=== PATIENT | male | born 1985 | race Caucasian/White ===

== ENCOUNTER → 2018-03-17 09:10 | Emergency (ER) | payer SELFPAY | END | disposition home or self-care (01) | LOC: OHCORT 09:10 | DX: Z02.5 Encounter for examination for participation in sport (principal) ==

== ENCOUNTER → 2018-05-05 09:39 | Emergency (ER) | payer SELFPAY | END | disposition home or self-care (01) | LOC: OHCORT 09:39 | DX: Z02.9 Encounter for administrative examinations, unspecified (principal) ==